=== PATIENT | male | born 1945 | race Caucasian/White ===

== ENCOUNTER → 2020-06-21 14:37 | Outpatient (CLI) | payer MEDICARE, SELFPAY ==
--- NOTE | 2020-06-21 14:40 | CT_ITS ---
STUDY: CT SCAN LOWER EXTREMITY LEFT REASON FOR EXAM: Male, 74 years old. MYKE, VARUS DEFORMITY RADIATION DOSAGE (If Supplied By Facility): CTDIvol = ( 18.73 ) mGy, DLP = ( 1533.46 ) mGycm. Individualized dose optimization techniques were used for this CT.? TECHNIQUE: Multiple axial tomographic images of the left hip joint, left knee joint and left ankle joint were obtained. Coronal and sagittal reconstruction was obtained as well. COMPARISON: None. FINDINGS: The left hip joint is unremarkable. No significant joint space narrowing. There is evidence of disc space narrowing and disc degeneration with spondylosis at the L4-L5 and L5-S1 levels. Minimal anterior listhesis of L5 on S1 most likely secondary to the facet joint osteoarthritis. Moderate degree of joint space narrowing involving the medial compartment of the knee joint. There is evidence of a degenerative spur formation along the medial femoral condyle and medial tibial plateau. There is evidence of subchondral cysts in the medial tibial plateau as well as the medial femoral condyle. Minimal joint space narrowing and degenerative changes involving the femoral patellar joint. Small joint effusion. The ankle joint is unremarkable. CT/Extremity Lower without Contra IMPRESSION: Moderate degree of joint space narrowing and degenerative changes involving the medial compartment of the knee joint and minimal joint space narrowing of the patellofemoral joint. Small joint effusion. 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 Electronically Signed: Sam Rae, at 14:14 EDT , Service support ,
== END ==
PROVIDERS: PCP Family Medicine; Referring Provider Orthopaedic Surgery; Visit Provider Orthopaedic Surgery
DX: M21.162 Varus deformity, not elsewhere classified, left knee (principal)
CPT/HCPCS: 73700

== ENCOUNTER 2020-07-02 11:32 | Observation (INO) | payer MEDICARE, SELFPAY ==
--- NOTE | 2020-06-21 15:45 | EKG12_ITS ---
Test Reason : PRE OP Blood Pressure : / mmHG Vent. Rate : 059 BPM Atrial Rate : 059 BPM P-R Int : 148 ms QRS Dur : 116 ms QT Int : 394 ms P-R-T Axes : 066 -44 035 degrees QTc Int : 390 ms Sinus bradycardia Left axis deviation Abnormal ECG Confirmed by MARCIE MARTINEZ, ASRAHI ([id number]), pictures editor GLADIS UMANA ([id number]) on 06/25/2020 8:02:25 AM Referred By: Graham Tubbs Confirmed By:SARAHI JACK MD
[2020-06-21 15:58] LABS: Absolute Lymphocyte Count 1.09 X10^3/uL (0.83-4.51); Absolute Neutrophil Count 2.3 X10^3/uL (2.0-7.7); Basophil# 0.01 X10^3/uL; Basophil% 0.3 % (0-1); Eosinophil# 0.11 X10^3/uL; Eosinophils% 2.9 % (0-5); Hematocrit 41.5 % (40-54); Hemoglobin 14.5 g/dL (13.0-16.5); Lymphocyte # 1.09 X10^3/ul (4.0); Lymphocyte % 28.6 % (19-41); Mean Corp Hgb Conc 34.9 g/dL (32-36); Mean Corpuscular Hgb 30.5 pg (27.0-32.0); Mean Corpuscular Volume 87.2 fL (80-94); Mean Platelet Vol. 8.6 fl (6.2-12.0); Monocyte# 0.33 X10^3/uL; Monocyte% 8.7 % (0-10); NRBC Flagged by Analyzer 0 % (0-5); Neutrophil # 2.26 X10^3/uL (2.7-7.7); Neutrophil % 59.2 % (47-70); Platelet Count 184 K/mm3 (150-450); RBC Distribution Width CV 12.2 % (11.6-14.6); RBC Distribution Width SD 39.2 fl (35.1-43.9); Red Blood Count 4.76 M/mm3 (4.6-6.2); White Blood Count 3.8 K/mm3 (4.4-11.0)
[2020-06-21 16:32] LABS: Anion Gap 5 (5-15); BUN 16 mg/dL (7-18); BUN/Creat Ratio 16.5 RATIO (10-20); Calcium,Total 9.1 mg/dL (8.5-10.1); Chloride 108 mmol/L (98-107); Creatinine, Serum 0.97 mg/dL (0.70-1.30); EST Glomerular Filtration Rate 81 mL/min (>60); Est Glom Filt Rate - Afr Amer 97 mL/min (>60); Glucose 116 mg/dL (74-106); Potassium 3.7 mmol/L (3.5-5.1); Sodium Level 141 mmol/L (136-145)
[2020-06-22 15:15] LABS: Magnesium 2.4 mg/dL (1.6-2.6)
[2020-07-02] VITALS (11 sets, daily range): BP systolic 119–151; BP diastolic 58–82; PULSE 67–88; RESP 16; TEMP 36.3–36.7; O2SAT 94–100; BMI 26.2
[2020-07-02] MEDS: Acetaminophen 500 MG Tablet 1000 MG PO ×3 (08:32→20:53)
[2020-07-02] MEDS: Gabapentin 600 MG Tablet PO (08:33)
[2020-07-02] MEDS: Lactated Ringers 1,000 ML 125 ML IV (08:43)
[2020-07-02 08:50] LABS: Bedside Glucose 92 mg/dL (70-110)
[2020-07-02] MEDS: Cefazolin 2 GM in 0.9% Normal Saline 100 ML IV (09:58)
--- NOTE | 2020-07-02 10:00 | KNEE_PTH ---
PATIENT: BIJAN RANGEL LOC: MS3 U#:[id number] AGE/SX: 74/M ROOM: MS313 RE07/02/[address]: Dr. Graham Tubbs DO : 1945 BED: 1 DIS: 07/03/2020 SPEC #: [id number] RECD: 07/02/20 13:15 STATUS: MICHAEL REJhonatan #: [id number] CHIARA: 07/02/20 10:[address]: Graham Tubbs DEPT: SURGICAL PATHOLOGY RECD BY: Kyle Argueta ENTERED: 07/02/20 13:30 SP TYPE: TOTAL KNEE OTHR DR: Dr. Toni Rich DO Tissues: Knee, NOS Procedures: Decalcification bone/plaque Surgery Specimen Level IV HEADER OPERATION: DOMONIQUES, robotic assisted total knee arthroplasty PRE-OP DIAGNOSIS: Unilateral primary osteoarthritis left knee TISSUE SUBMITTED: Bone and soft tissue left knee MICROSCOPIC DIAGNOSIS Bone and soft tissue, left knee, total knee arthroplasty: Pieces of bone with degenerative osteoarthritic changes. Fibroadipose tissue, fibroconnective tissue and reactive synovial tissue. AILYN:grisel 07/05/20 MICROSCOPIC DESCRIPTION Slides are reviewed. GROSS DESCRIPTION Received is one container designated bone and soft tissue left knee. The specimen consists of multiple fragments of olson-yellow bone measuring in aggregate 12 x 10 x 3 cm. Also in the specimen container are multiple fragments of yellow-white soft tissue measuring in aggregate 9 x 5 x 2 cm. A number of bony fragments contain articular surfaces consistent with tibial plateau and femoral condyle and displaying prominent osteophyte formation, eburnation, and bone erosion. Copper Tapper sections are submitted in two cassettes as follows: 1 - soft tissue, 2 - bone after decalcification. / AILYN:grisel 07/02/20 TC:5 [facility]: [id number], [id number]
--- NOTE | 2020-07-02 12:21 | RAD_ITS ---
STUDY: X-RAY - LEFT KNEE REASON FOR EXAM: Male, 74 years old. POST OP TECHNIQUE: 2 view(s) of the knee. COMPARISON: None. FINDINGS: Normal visualized distal femur. Normal visualized proximal tibia and fibula. Normal proximal tibiofibular articulation. The patient is status post total knee replacement. There is good alignment. Postoperative soft tissue changes. RAD/Knee 1 or 2 Views IMPRESSION: Status post total knee replacement. There is good alignment. Postoperative soft tissue changes. Electronically Signed: Sam Rae, at 12:49 EDT , Service support ,
[2020-07-02 12:44] LABS: Hematocrit 38.6 % (40-54); Hemoglobin 13.2 g/dL (13.0-16.5); Mean Corp Hgb Conc 34.2 g/dL (32-36); Mean Corpuscular Hgb 30.3 pg (27.0-32.0); Mean Corpuscular Volume 88.5 fL (80-94); Mean Platelet Vol. 8.6 fl (6.2-12.0); Platelet Count 187 K/mm3 (150-450); RBC Distribution Width CV 12.3 % (11.6-14.6); RBC Distribution Width SD 40.3 fl (35.1-43.9); Red Blood Count 4.36 M/mm3 (4.6-6.2); White Blood Count 5.3 K/mm3 (4.4-11.0)
[2020-07-02 13:03] LABS: Anion Gap 7 (5-15); BUN 9 mg/dL (7-18); BUN/Creat Ratio 9.7 RATIO (10-20); Calcium,Total 8.4 mg/dL (8.5-10.1); Chloride 109 mmol/L (98-107); Creatinine, Serum 0.93 mg/dL (0.70-1.30); EST Glomerular Filtration Rate 85 mL/min (>60); Est Glom Filt Rate - Afr Amer 103 mL/min (>60); Estimated Creatinine Clearance 73.04 ml/min; Glucose 164 mg/dL (74-106); Potassium 3.5 mmol/L (3.5-5.1); Sodium Level 142 mmol/L (136-145)
--- NOTE | 2020-07-02 13:43 | PCM.OPRPT ---
Report of Operation Date of Procedure: 07/02/20 Pre-Operative Diagnosis: OA Left knee Post-Operative Diagnosis: same Surgery/Procedure Performed:: Left TKR inspector balance truing: Adam Herrmann Type of Anesthesia:: Spinal Anesthesiologist: Kenroy Reddy Estimated Blood Loss (mL): 20 cc - Admit VTE Documentation VTE Present on Admission: No VTE Mechan Device Prophylaxis: SCD's, Thigh High CHARMAINE Hose VTE Pharm Prophylaxis ordered?: Yes
[2020-07-02] MEDS: Aspirin 81 MG TAB.CHEW PO (16:37)
[2020-07-02] MEDS: Cefazolin 1 GM/50 ML BAG IV (17:39)
[2020-07-02] MEDS: Senna/Docusate Sodium 1 Tablet 2 TABLET PO (20:53)
[2020-07-03] MEDS: Cefazolin 1 GM/50 ML BAG IV (02:28)
[2020-07-03 02:30] VITALS: BP 123/61; PULSE 86; RESP 16; TEMP 37; O2SAT 95
[2020-07-03] MEDS: Acetaminophen 500 MG Tablet 1000 MG PO ×2 (05:21→13:32)
[2020-07-03 05:23] LABS: Hematocrit 34.6 % (40-54); Hemoglobin 11.8 g/dL (13.0-16.5); Mean Corp Hgb Conc 34.1 g/dL (32-36); Mean Corpuscular Hgb 30.1 pg (27.0-32.0); Mean Corpuscular Volume 88.3 fL (80-94); Mean Platelet Vol. 8.3 fl (6.2-12.0); Platelet Count 180 K/mm3 (150-450); RBC Distribution Width CV 12.5 % (11.6-14.6); Red Blood Count 3.92 M/mm3 (4.6-6.2); White Blood Count 13.6 K/mm3 (4.4-11.0)
[2020-07-03 05:38] LABS: Anion Gap 6 (5-15); BUN 14 mg/dL (7-18); BUN/Creat Ratio 14.9 RATIO (10-20); Calcium,Total 7.8 mg/dL (8.5-10.1); Chloride 106 mmol/L (98-107); Creatinine, Serum 0.94 mg/dL (0.70-1.30); EST Glomerular Filtration Rate 83 mL/min (>60); Est Glom Filt Rate - Afr Amer 101 mL/min (>60); Estimated Creatinine Clearance 72.27 ml/min; Glucose 124 mg/dL (74-106); Potassium 4.4 mmol/L (3.5-5.1); Sodium Level 139 mmol/L (136-145)
--- NOTE | 2020-07-03 07:54 | PCM.PN.ORT ---
Subjective: Patient sitting up in bed eating breakfast. Pain well managed. Patient denies chest pain, shortness of breath, calf pain, nausea vomiting. Patient has no other complaints. Patient states he is ready for discharge home today. Objective: Dressing is clean dry intact. Negative signs and symptoms of DVT. Vital signs and labs were reviewed and noted in medical record. Patient is afebrile, neurovascular is otherwise intact. Patient is in no respiratory distress speaking in full sentences. - Physical Exam Vitals/I&O's: Vital Signs Temp Pulse Resp BP Pulse Ox 98.6 F 86 16 123/61 H 95 07/03/20 02:30 07/03/20 02:30 07/03/20 02:30 07/03/20 02:30 07/03/20 02:30 Oxygen Flow Rate (L/min) 6 Oxygen Delivery Method Room Air Weight: 82.8 kg Body Mass Index (BMI) 26.2 Intake and Output for Last 24 Hours 07/01/20 07/02/20 07/03/20 23:59 23:59 23:59 Intake Total 1485 / 1735 600 / 600 Output Total 1450 / 1450 Balance 1485 / 1235 -850 / -850 General: Alert, Oriented x3, Cooperative HEENT: PERRLA Oral: Moist Mucosa Neurological: Cranial nerves II-XII grossly intact Psych/Mental Status: Normal Affect, Alert and oriented to time, place, person, mood and affect Laboratory Results 07/02/20 08:27: POC Glucose 92 07/02/20 12:39: WBC 5.3, RBC 4.36 L, Hgb 13.2, Hct 38.6 L, MCV 88.5, MCH 30.3, MCHC 34.2, RDW Std Deviation 40.3, RDW Coeff of Octavia 12.3, Plt Count 187, MPV 8.6 07/02/20 12:39: Sodium 142, Potassium 3.5, Chloride 109 H, Carbon Dioxide 26.0, Anion Gap 7, BUN 9, Creatinine 0.93, Estim Creat Clear Calc 73.04, Est GFR (MDRD) Af Amer 103, Est GFR (MDRD) Non-Af 85, BUN/Creatinine Ratio 9.7 L, Glucose 164 H, Calcium 8.4 L 07/03/20 05:18: WBC 13.6 H, RBC 3.92 L, Hgb 11.8 L, Hct 34.6 L, MCV 88.3, MCH 30.1, MCHC 34.1, RDW Std Deviation 40.0, RDW Coeff of Octavia 12.5, Plt Count 180, MPV 8.3 07/03/20 05:18: Sodium 139, Potassium 4.4, Chloride 106, Carbon Dioxide 27.0, Anion Gap 6, BUN 14, Creatinine 0.94, Estim Creat Clear Calc 72.27, Est GFR (MDRD) Af Amer 101, Est GFR (MDRD) Non-Af 83, BUN/Creatinine Ratio 14.9, Glucose 124 H, Calcium 7.8 L Current Medications Acetaminophen (Acetaminophen 500 Mg Tablet) 1,000 mg PO Q8 [facility] Last Admin: 07/03/20 05:21 Dose: 1,000 mg Documented by: Aspirin (Aspirin 81 Mg Tab.Chew) 81 mg PO BIDCM [facility] Last Admin: 07/02/20 16:37 Dose: 81 mg Documented by: Insulin Human Lispro (Insulin Lispro 100 Unit/Ml Insuln.Pen) 1 - 6 unit SC Q4H PRN PRN; Protocol PRN Reason: BG>/= 180, SEE PROTOCOL Ondansetron HCl (Ondansetron 4 Mg/2 Ml Vial) 4 mg IV Q8H PRN PRN PRN Reason: NAUSEA Oxycodone HCl (Oxycodone 5 Mg Tablet) 5 - 10 mg PO Q4H PRN PRN PRN Reason: Pain Score 4-10 Promethazine HCl (Promethazine 25 Mg/Ml Syringe) 12.5 mg IM Q6H PRN PRN; Protocol PRN Reason: NAUSEA/VOMITING Senna/Docusate Sodium (Senna/Docusate Sodium 1 Tablet) 2 tablet PO BID [facility] Last Admin: 07/02/20 20:53 Dose: 2 tablet Documented by: Sodium Chloride (0.9% Nacl Peripheral Flush Adult/Peds) 5 - 15 ml IV UD PRN PRN Reason: SALINE FLUSH Sodium Chloride (0.9% Saline Lock 10 Ml Syringe) 10 - 40 ml IV UD PRN PRN Reason: SALINE FLUSH Medical Necessity - Tobacco Use Smoking Status: Never smoker Tobacco Use: Non-smoker Assessment/Plan Status post left total knee arthroplasty Plan 1. Continue all pain medications as prescribed 2. Continue physical therapy weight-bear as tolerated with walker 3. Aspirin 81 mg 1 p.o. every 12 hours x30 days for postop DVT prophylaxis 4. Encourage incentive spirometry 5. Patient will continue outpatient therapy at [facility] 6. Follow-up as scheduled, see pink sheet 7. Discharge home today after p.m. therapy
--- NOTE | 2020-07-03 07:59 | DCINST_ITS ---
Discharge Diet: No Restrictions Discharge Activity: May Not Drive, May Shower, Use Walker May shower in (days): 3 Ice area for (Minutes): 20 - each hour while awake. Weight Bearing Status: Weight bearing as tolerated Elevate: Operative Extremity Additional Activity Instructions:: Wear elastic stockings for 2 weeks after your surgery. Call your doctor if your incision/area has: Continuous Slow Oozing, Sudden Increased Bleeding, Increased Pain/ Swelling, Increased Redness, Foul Smelling Discharge Call your doctor if you observe: Fever of 101 or Higher, Coldness, Increased Pain - in extremity, Numbness or Tingling, Change in Color, Calf discomfort, Uncontrolled pain Change Dressing in (Days):: 0 - and daily as needed. Remove Dressing in (days):: 8 Cleanse incision/area with: Soap & Water Allergies/Adverse Reactions: Allergies No Known Allergies Allergy (Verified 06/22/20 13:24) Medications to take at Discharge Celecoxib [Celebrex] 200 mg PO DAILY 06/22/20 Acetaminophen [Tylenol] 1,000 mg PO Q8 #90 tab 07/03/20 Aspirin [Aspirin, Baby] 81 mg PO BIDCM #60 tab.chew 07/03/20 Oxycodone [Oxyir] 5 - 10 mg PO Q4H PRN PRN 7 Days #84 tablet 07/03/20 Senna/Docusate Sodium [Senokot-S] 2 tablet PO BID tablet 07/03/20 The following prescriptions were given: Aspirin [Aspirin, Baby] 81 mg PO BIDCM #60 tab.chew Transmission Status: Pending to [id number] Oxycodone [Oxyir] 5 - 10 mg PO Q4H PRN PRN 7 Days #84 tablet PRN Reason: Pain Score 4-10 Transmission Status: Received by [id number] Acetaminophen [Tylenol] 1,000 mg PO Q8 #90 tab Transmission Status: Pending to [id number] Primary Care Physician: Toni Rich DO [Primary Care Provider] - Test Results: Test results from this visit will be discussed in further detail at your follow- up appointment, if applicable. Please Follow Up With: Adam Herrmann PA-C When: as scheduled (see pink sheet)
[2020-07-03] MEDS: Senna/Docusate Sodium 1 Tablet 2 TABLET PO (08:02)
[2020-07-03] MEDS: Aspirin 81 MG TAB.CHEW PO (08:02)
[2020-07-03 08:03] VITALS: BP 109/57; PULSE 60; RESP 16; TEMP 36.4; O2SAT 95
[2020-07-03 08:05] VITALS: PULSE 60
[2020-07-03] MEDS: 0.9% NaCl Peripheral Flush Adult/Peds IV (08:09)
--- NOTE | 2020-07-03 10:55 | CASEMGMT ---
RN CM IOS ARCHITECT CM to room to meet with patient for initial transition planning/care coordination assessment. [employer] FREEMAN introduced self and role at [facility]. Pt voices understanding and consents to assessment at this time. Pt sitting up in chair in room in no distress at this time. Pt is A/O at this time and answers all questions appropriately. Care providers, pharmacy, and demographics verified/updated at this time. PCP: Dr Rich Specialists: Dr Tubbs Preferred Pharmacy: [facility] Insurance: [employer] [facility] PPO Prescription Benefit: Yes Living Will/HPOA: Has both LW and Healthcare POA, who is his , Anjana LNOK: , Anjana Living Arrangements: Lives w/his in one-story home w/one step to enter. Was independent prior to surgery. able to help. Transportation: Pt, . Denies concerns. DME: States has the following DME: Walker Pt states no need for further DME at this time. HHC/SNF: No history of either. Denies need for HHC. Pt wishes to go to OP therapy @ [facility]. Has appt on 07/06 @ 1 PM. Pt wishes to return home and states has no concerns with going home at time of discharge. CM to follow for any discharge planning/needs. Pt voices no concerns/needs at this time. Advised pt to ask for CM if any questions/concerns/needs arise. Voices understanding. PLAN: Home w/OP therapy @ [facility] Óscar ISLAS RN, CM
[2020-07-03 11:50] VITALS: BP 112/55; PULSE 61; RESP 16; TEMP 36.6; O2SAT 99
== END 2020-07-03 14:01 | disposition home or self-care (01) ==
LOC: SDC 11:49 → MS3 07-03 07:29
PROVIDERS: Anesthesiology; Admitting Provider Orthopaedic Surgery; PCP Family Medicine; Referring Provider Orthopaedic Surgery; Visit Provider Orthopaedic Surgery
PROC: 0SRD0JZ Replacement of Left Knee Joint with Synthetic Substitute, Open Approach (ICD-10-PCS; CPT 27447; principal; 2020-07-02 09:30)
DX: M17.12 Unilateral primary osteoarthritis, left knee (principal); Z79.899 Other long term (current) drug therapy; R00.1 Bradycardia, unspecified; R94.31 Abnormal electrocardiogram [ECG] [EKG]; Z20.828 Contact with and (suspected) exposure to other viral communicable diseases; M21.162 Varus deformity, not elsewhere classified, left knee
CPT/HCPCS: 01400; 27447; 64447; S2900; 36415; 73560; 80048; 82962; 83735; 85025; 85027; 87081; 87635; 88305; 88311; 93005; 96361; 96365; 96366; 97110; 97161; 97166; 97530; 97535; 99218; 99251; C1776; C9803; J7120; A4216; G0378; G0379; G0463; J2405; U0003

== ENCOUNTER → 2020-07-31 15:28 | Outpatient (CLI) | payer MEDICARE, SELFPAY ==
[2020-07-02 13:30] VITALS: BMI 26.2
--- NOTE | 2020-07-31 15:30 | CT_ITS ---
STUDY: CT RIGHT LOWER EXTREMITY REASON FOR EXAM: Osteoarthritis of right knee, surgical planning. TECHNIQUE: Transaxial CT imaging of the lower extremity was performed. Coronal and sagittal images were reformatted. Individualized dose optimization techniques were used for this CT. COMPARISON: None. FINDINGS: Knee: There are marginal osteophytes, subchondral eburnation and mild joint space narrowing of the medial femorotibial compartment (coronal reconstruction 28). Normal lateral femoral condyle and lateral tibial plateau. There is preservation of the articular joint space of the lateral knee compartment. There are marginal osteophytes and mild joint space narrowing of the patellofemoral articulation (axial image 241). Normal proximal tibiofibular articulation. There is a small joint effusion. The quadriceps tendon is grossly normal. The patellar tendon is grossly normal. Normal Hoffa''s fat pad. There is a small anterior intra-articular body (sagittal reconstruction 30). Hip: There is subchondral cystic change of the lateral acetabulum (sagittal reconstructions 51, 52). The hip joint space is well-preserved. Ankle: There is a small osteochondral lesion of the medial talar dome (coronal reconstruction 27). Normal posterior subtalar and talonavicular articulations. There is arthrosis of the navicular-cuneiform articulations with joint space narrowing and subchondral cystic change of the navicular (sagittal reconstructions 61-63). CT/Extremity Lower without Contra IMPRESSION: Osteoarthritis of the right knee with small intra-articular body. Small right knee joint effusion. Electronically Signed: Monico Moseley MD at 15:20 EST Tel , Service support ,
== END ==
PROVIDERS: PCP Family Medicine; Referring Provider Orthopaedic Surgery; Visit Provider Orthopaedic Surgery
DX: M17.11 Unilateral primary osteoarthritis, right knee (principal); M21.151 Varus deformity, not elsewhere classified, right hip
CPT/HCPCS: 73700

== ENCOUNTER 2020-08-13 07:31 | Observation (INO) | payer MEDICARE, SELFPAY ==
[2020-07-02 13:30] VITALS: BMI 26.2
--- NOTE | 2020-08-03 13:34 | EKG12_ITS ---
Test Reason : PREOP Blood Pressure : / mmHG Vent. Rate : 070 BPM Atrial Rate : 070 BPM P-R Int : 140 ms QRS Dur : 116 ms QT Int : 396 ms P-R-T Axes : 043 -35 064 degrees QTc Int : 427 ms Normal sinus rhythm Left axis deviation Abnormal ECG Confirmed by CHRISTOPHER MARTINEZ, JELANI ([id number]), photography editor GLADIS UMANA ([id number]) on 08/07/2020 9:26:31 AM Referred By: Graham Tubbs Confirmed By:JELANI WHITE MD
[2020-08-03 14:33] LABS: Absolute Neutrophil Count 3.3 X10^3/uL (2.0-7.7); Basophil# 0.02 X10^3/uL; Basophil% 0.4 % (0-1); Eosinophil# 0.27 X10^3/uL; Eosinophils% 5.1 % (0-5); Hematocrit 38.4 % (40-54); Hemoglobin 12.9 g/dL (13.0-16.5); Mean Corp Hgb Conc 33.6 g/dL (32-36); Mean Corpuscular Hgb 29.7 pg (27.0-32.0); Mean Corpuscular Volume 88.5 fL (80-94); Mean Platelet Vol. 8.7 fl (6.2-12.0); Monocyte# 0.53 X10^3/uL; Monocyte% 10.1 % (0-10); NRBC Flagged by Analyzer 0 % (0-5); Neutrophil # 3.31 X10^3/uL (2.7-7.7); Platelet Count 216 K/mm3 (150-450); RBC Distribution Width CV 12.5 % (11.6-14.6); RBC Distribution Width SD 40.7 fl (35.1-43.9); Red Blood Count 4.34 M/mm3 (4.6-6.2); White Blood Count 5.3 K/mm3 (4.4-11.0)
[2020-08-03 14:41] LABS: Anion Gap 4 (5-15); BUN 16 mg/dL (7-18); BUN/Creat Ratio 13.9 RATIO (10-20); Calcium,Total 8.9 mg/dL (8.5-10.1); Chloride 108 mmol/L (98-107); Creatinine, Serum 1.15 mg/dL (0.70-1.30); EST Glomerular Filtration Rate 66 mL/min (>60); Est Glom Filt Rate - Afr Amer 80 mL/min (>60); Glucose 111 mg/dL (74-106); Potassium 3.6 mmol/L (3.5-5.1); Sodium Level 141 mmol/L (136-145)
[2020-08-03 14:44] LABS: Magnesium 2.4 mg/dL (1.6-2.6)
[2020-08-13] VITALS (16 sets, daily range): BP systolic 103–145; BP diastolic 50–82; PULSE 57–92; RESP 16–18; TEMP 36–36.8; O2SAT 97–100; BMI 26.2
--- NOTE | 2020-08-13 | KNEE_PTH ---
PATIENT: BIJAN RANGEL LOC: MS3 U#:[id number] AGE/SX: 74/M ROOM: [facility] [place] RE08/13/[address]: Dr. Graham Tubbs DO : 1945 BED: 1 DIS: 08/14/2020 SPEC #: [id number] RECD: 08/13/20 10:51 STATUS: MICHAEL REQ #: [id number] CHIARA: 08/13/20 00:[address]: Graham Tubbs DEPT: SURGICAL PATHOLOGY RECD BY: Sylvester Mendez ENTERED: 08/13/20 12:27 SP TYPE: TOTAL KNEE OTHR DR: Dr. Toni Rich DO Tissues: Knee, NOS Procedures: Decalcification bone/plaque Surgery Specimen Level IV HEADER OPERATION: ERAS, total knee replacement robotic arm assist PRE-OP DIAGNOSIS: Primary osteoarthritis TISSUE SUBMITTED: Right knee bone MICROSCOPIC DIAGNOSIS Right knee bone, total knee replacement/resection: Pieces of bone with degenerative osteoarthritic changes. :grisel 08/16/20 MICROSCOPIC DESCRIPTION Slides are reviewed. GROSS DESCRIPTION Received is one container designated knee bone. The specimen consists of multiple fragments of olson-yellow bone measuring in aggregate 15 x 15 x 2 cm. A number of bony fragments contain articular surfaces consistent with tibial plateau and femoral condyle and displaying prominent osteophyte formation, eburnation, and bone erosion. No soft tissue is identified. Artisan Plasterer sections are submitted in one cassette after decalcification. / AM:grisel 08/13/20 TC:5 CPT: 55100, 25687
[2020-08-13] MEDS: Lactated Ringers 1,000 ML 125 ML IV (06:10)
[2020-08-13] MEDS: Acetaminophen 500 MG Tablet 1000 MG PO ×3 (06:11→21:08)
[2020-08-13] MEDS: Gabapentin 600 MG Tablet PO (06:11)
[2020-08-13 06:41] LABS: Bedside Glucose 86 mg/dL (70-110)
--- NOTE | 2020-08-13 07:32 | RAD_ITS ---
STUDY: X-RAY - RIGHT KNEE REASON FOR EXAM: Male, 74 years old. POST OP TECHNIQUE: 2 view(s) of the knee. COMPARISON: None. FINDINGS: Normal visualized distal femur. Normal visualized proximal tibia and fibula. Normal proximal tibiofibular articulation. The patient is status post right total knee replacement. There is good alignment. Postoperative soft tissue changes. RAD/Knee 1 or 2 Views IMPRESSION: Status post right total knee replacement. There is good alignment. Postoperative soft tissue changes. Electronically Signed: Sam Rae, at 10:31 EST , Service support ,
[2020-08-13] MEDS: Cefazolin 2 GM in 0.9% Normal Saline 100 ML IV (07:50)
--- NOTE | 2020-08-13 10:08 | EKG12_ITS ---
Test Reason : IRREGULAR RYTH Blood Pressure : / mmHG Vent. Rate : 054 BPM Atrial Rate : 054 BPM P-R Int : 168 ms QRS Dur : 114 ms QT Int : 454 ms P-R-T Axes : 062 -37 -12 degrees QTc Int : 430 ms Sinus bradycardia Left axis deviation Incomplete right bundle branch block Abnormal ECG Confirmed by MARCIE MARTINEZ, SARAHI ([id number]), continuity editor GLADIS UMANA ([id number]) on 08/15/2020 1:36:56 PM Referred By: Graham Tubbs Confirmed By:SARAHI JACK MD
[2020-08-13 10:18] LABS: Hematocrit 35.9 % (40-54); Hemoglobin 12.2 g/dL (13.0-16.5); Mean Corpuscular Hgb 29.8 pg (27.0-32.0); Mean Corpuscular Volume 87.6 fL (80-94); Mean Platelet Vol. 8.3 fl (6.2-12.0); Platelet Count 243 K/mm3 (150-450); RBC Distribution Width CV 12.4 % (11.6-14.6); RBC Distribution Width SD 39.8 fl (35.1-43.9); White Blood Count 5.8 K/mm3 (4.4-11.0)
[2020-08-13 10:29] LABS: Anion Gap 6 (5-15); BUN 15 mg/dL (7-18); BUN/Creat Ratio 17.3 RATIO (10-20); Calcium,Total 8.3 mg/dL (8.5-10.1); Chloride 109 mmol/L (98-107); Creatinine, Serum 0.87 mg/dL (0.70-1.30); EST Glomerular Filtration Rate 92 mL/min (>60); Est Glom Filt Rate - Afr Amer 111 mL/min (>60); Estimated Creatinine Clearance 78.08 ml/min; Glucose 160 mg/dL (74-106); Potassium 3.4 mmol/L (3.5-5.1); Sodium Level 142 mmol/L (136-145)
--- NOTE | 2020-08-13 10:39 | PCM.CONS.GEN ---
Problem List (1) LBBB (left bundle branch block) Status: Acute (2) Hypokalemia Status: Acute Reason for Consult Date of Consultation: 08/13/20 Reason for Consultation: abnormal EKG History of Present Illness: The patient is a 74 year old M a right total knee replacement by Dr. Marte. Patient had a postoperative EKG that showed a left bundle branch block that was changed from EKG from 1127. Postoperatively, patient denies any chest pain or shortness of breath. Otherwise feels well. He denies any personal history of cardiac disease. [] Past Medical History Allergies No Known Allergies Allergy (Verified 07/30/20 13:58) Home Medications: Ambulatory Orders Medication Instructions Recorded Celecoxib [Celebrex] 200 mg PO DAILY 06/22/20 Acetaminophen [Tylenol] 1,000 mg PO Q8 #90 tab 07/03/20 Surgical History: total knee arthroplasty Smoking Status: Never smoker Tobacco Use: Non-smoker - *Family History Sibling History Items: Heart Disease Review of Systems Constitutional: Denies: Anorexia, Fever Eyes: Denies: Blurred vision, Double vision HEENT: Denies: Head Aches, Sinus Congestion, Sinus Drainage Cardiovascular: Denies: Chest Pain, Palpitations Respiratory: Denies: Cough, Shortness of breath at rest, Sputum production Gastrointestinal: Denies: Abdominal Pain, Nausea, Vomiting Comment: All review of systems were negative except as mentioned above in the history of present illness and the other review of systems. Patient Problems: Active and Suspected Problems LBBB (left bundle branch block) (Acute) Hypokalemia (Acute) - Physical Exam Vitals/I&O's: Vital Signs Temp Pulse Resp BP Pulse Ox 36.2 C L 82 16 122/66 H 100 08/13/20 09:45 08/13/20 10:30 08/13/20 10:30 08/13/20 10:30 08/13/20 10:30 Oxygen Flow Rate (L/min) 6 Oxygen Delivery Method Simple Mask Weight: 83 kg Body Mass Index (BMI) 26.2 Intake and Output for Last 24 Hours 08/11/20 08/12/20 08/13/20 23:59 23:59 23:59 Intake Total 435 / 435 Balance 435 / 435 General: Alert, Cooperative, No apparent distress HEENT: Atraumatic, Normocephalic Oral: Moist Mucosa, No Gingival or Mucosal Lesions/ Ulcerations Neck: No Nodes, Thyroid Normal Size and Texture Lungs: Clear to auscultation, Normal air movement, No rhonchi, No wheeze, No rales Cardiovascular: Regular rate, Regular Rhythm, Normal S1, Normal S2, No murmurs Abdomen: Bowel Sounds Present, Soft, Non Tender, Non-Distended, No Hepato-splenomegaly Extremities: No edema, No Calf Tenderness Skin: No rashes, No breakdown Psych/Mental Status: Normal Affect, Appropriate Microbiology Past 72 Hours 08/10/20 13:57 Interface Orders SARS-CoV-2 Antigen (Rapid) - Final Laboratory Results 08/13/20 05:52: POC Glucose 86 08/13/20 10:08: WBC 5.8, RBC 4.10 L, Hgb 12.2 L, Hct 35.9 L, MCV 87.6, MCH 29.8, MCHC 34.0, RDW Std Deviation 39.8, RDW Coeff of Octavia 12.4, Plt Count 243, MPV 8.3 08/13/20 10:08: Sodium 142, Potassium 3.4 L, Chloride 109 H, Carbon Dioxide 27.0, Anion Gap 6, BUN 15, Creatinine 0.87, Estim Creat Clear Calc 78.08, Est GFR (MDRD) Af Amer 111, Est GFR (MDRD) Non-Af 92, BUN/Creatinine Ratio 17.3, Glucose 160 H, Calcium 8.3 L 08/13/20 10:08: Troponin I < 0.015 08/13/20 10:08: Magnesium Pending EKG reviewed and showed normal sinus rhythm with a left bundle branch block. This is changed from 08/03/2020. Current Medications Acetaminophen (Acetaminophen 500 Mg Tablet) 1,000 mg PO Q8 MICHAEL Aspirin (Aspirin 81 Mg Tab.Chew) 81 mg PO BIDCM [facility] Lactated Ringer's () 1,000 mls @ 125 mls/hr IV .Q8H [facility] Stop: 08/13/20 14:59 Last Admin: 08/13/20 06:10 Dose: 125 mls/hr Documented by: Cefazolin Sodium () 1 gm in 50 mls @ 150 mls/hr IV Q8H [facility] Stop: 08/14/20 00:19 Insulin Human Lispro (Insulin Lispro 100 Unit/Ml Insuln.Pen) 1 - 6 unit SC Q4H PRN PRN; Protocol PRN Reason: BG>/= 180, SEE PROTOCOL Ondansetron HCl (Ondansetron 4 Mg/2 Ml Vial) 4 mg IV Q8H PRN PRN PRN Reason: NAUSEA Oxycodone HCl (Oxycodone 5 Mg Tablet) 5 - 10 mg PO Q4H PRN PRN PRN Reason: Pain Score 4-10 Potassium Chloride (Potassium Chloride 20 Meq Tablet) 40 meq PO X1 ONE Stop: 08/13/20 10:38 Promethazine HCl (Promethazine 25 Mg/Ml Syringe) 12.5 mg IM Q6H PRN PRN; Protocol PRN Reason: NAUSEA/VOMITING Senna/Docusate Sodium (Senna/Docusate Sodium 1 Tablet) 2 tablet PO BID MICHAEL Assessment/Plan All Active Problems LBBB (left bundle branch block) (Acute) Hypokalemia (Acute) 1. Left bundle branch block: New from 08/03 Cycle troponins. Based on the results of that if evidence of cardiac ischemia, may need to consider cardiology consultation. Will hold off for now as patient is currently asymptomatic. Will recheck his EKG this afternoon after electrolytes replacement to see if any changes which could be related with electrolyte abnormalities were just with anesthesia if those have resolved. 2. Hypokalemia: Replace Follow-up magnesium level 3. Status post right knee replacement Management per orthopedics 4. VTE prophylaxis: Per orthopedics. Inpatient E&M: 61170 Init Hosp L2
[2020-08-13 10:40] LABS: Magnesium 2.8 mg/dL (1.6-2.6)
--- NOTE | 2020-08-13 13:07 | OP.PCM_ITS ---
Report of Operation Date of Procedure: 08/13/20 Pre-Operative Diagnosis: OA right knee Post-Operative Diagnosis: same Surgery/Procedure Performed:: Right TKR [place] history professor: Adam Herrmann Type of Anesthesia:: Spinal Anesthesiologist: Kenroy Reddy - Admmaryellen VTE Documentation VTE Present on Admission: No VTE Mechan Device Prophylaxis: SCD's, Thigh High CHARMAINE Hose VTE Pharm Prophylaxis ordered?: Yes
[2020-08-13] MEDS: Senna/Docusate Sodium 1 Tablet 2 TABLET PO ×2 (13:37→21:08)
[2020-08-13] MEDS: Cefazolin 1 GM/50 ML BAG IV ×2 (16:08→23:40)
[2020-08-13] MEDS: Aspirin 81 MG TAB.CHEW PO (16:09)
[2020-08-14 04:00] VITALS: PULSE 62
[2020-08-14] MEDS: Acetaminophen 500 MG Tablet 1000 MG PO ×2 (05:09→13:11)
[2020-08-14 05:10] VITALS: BP 114/51; PULSE 73; RESP 16; TEMP 37; O2SAT 96
[2020-08-14 06:53] LABS: Hematocrit 33.2 % (40-54); Hemoglobin 10.9 g/dL (13.0-16.5); Mean Corp Hgb Conc 32.8 g/dL (32-36); Mean Corpuscular Hgb 29.1 pg (27.0-32.0); Mean Corpuscular Volume 88.5 fL (80-94); Mean Platelet Vol. 8.7 fl (6.2-12.0); Platelet Count 218 K/mm3 (150-450); RBC Distribution Width CV 12.5 % (11.6-14.6); RBC Distribution Width SD 40.6 fl (35.1-43.9); Red Blood Count 3.75 M/mm3 (4.6-6.2); White Blood Count 11.7 K/mm3 (4.4-11.0)
[2020-08-14 07:30] LABS: Anion Gap 5 (5-15); BUN 19 mg/dL (7-18); BUN/Creat Ratio 24.2 RATIO (10-20); Calcium,Total 8.2 mg/dL (8.5-10.1); Chloride 109 mmol/L (98-107); Creatinine, Serum 0.78 mg/dL (0.70-1.30); EST Glomerular Filtration Rate 103 mL/min (>60); Est Glom Filt Rate - Afr Amer 125 mL/min (>60); Estimated Creatinine Clearance 67.93 ml/min; Glucose 142 mg/dL (74-106); Potassium 3.8 mmol/L (3.5-5.1); Sodium Level 138 mmol/L (136-145)
--- NOTE | 2020-08-14 07:36 | PCM.PN.ORT ---
Patient Problems: Active and Suspected Problems LBBB (left bundle branch block) (Acute) Hypokalemia (Acute) Subjective: Patient sitting up in bed eating breakfast. Patient states pain is very well managed. Patient denies chest pain, shortness of breath, calf pain, nausea vomiting. Patient states he was told that he had an irregular heartbeat, however states he is never had any symptoms with this. Patient states he feels very good ready for discharge home. Objective: Dressings clean dry intact. Vital signs all within normal limits. Labs all reviewed noted medical record. Patient has a regular rate and rhythm by radial pulse. Patient is no respiratory distress, speaking in full sentences. Patient has no signs and symptoms of DVT. Patient is afebrile. - Physical Exam Vitals/I&O's: Vital Signs Temp Pulse Resp BP Pulse Ox 98.6 F 73 16 114/51 L 96 08/14/20 05:10 08/14/20 05:10 08/14/20 05:10 08/14/20 05:10 08/14/20 05:10 Oxygen Flow Rate (L/min) 6 Oxygen Delivery Method Room Air Weight: 83 kg Body Mass Index (BMI) 26.2 Intake and Output for Last 24 Hours 08/12/20 08/13/20 08/14/20 23:59 23:59 23:59 Intake Total 1964 50 / 50 Output Total 1275 / 1275 450 / 450 Balance 690 / 740 -400 / -400 General: Alert, Oriented x3, Cooperative HEENT: PERRLA Oral: Moist Mucosa Cardiovascular: Regular rate Neurological: Cranial nerves II-XII grossly intact Psych/Mental Status: Normal Affect, Alert and oriented to time, place, person, mood and affect Laboratory Results 08/13/20 10:08: WBC 5.8, RBC 4.10 L, Hgb 12.2 L, Hct 35.9 L, MCV 87.6, MCH 29.8, MCHC 34.0, RDW Std Deviation 39.8, RDW Coeff of Octavia 12.4, Plt Count 243, MPV 8.3 08/13/20 10:08: Sodium 142, Potassium 3.4 L, Chloride 109 H, Carbon Dioxide 27.0, Anion Gap 6, BUN 15, Creatinine 0.87, Estim Creat Clear Calc 78.08, Est GFR (MDRD) Af Amer 111, Est GFR (MDRD) Non-Af 92, BUN/Creatinine Ratio 17.3, Glucose 160 H, Calcium 8.3 L 08/13/20 10:08: Troponin I < 0.015 08/13/20 10:08: Magnesium 2.8 H 08/13/20 13:20: Troponin I < 0.015 08/13/20 16:32: Troponin I < 0.015 08/14/20 06:20: WBC 11.7 H, RBC 3.75 L, Hgb 10.9 L, Hct 33.2 L, MCV 88.5, MCH 29.1, MCHC 32.8, RDW Std Deviation 40.6, RDW Coeff of Octavia 12.5, Plt Count 218, MPV 8.7 08/14/20 06:20: Sodium 138, Potassium 3.8, Chloride 109 H, Carbon Dioxide 24.0, Anion Gap 5, BUN 19 H, Creatinine 0.78, Estim Creat Clear Calc 67.93, Est GFR (MDRD) Af Amer 125, Est GFR (MDRD) Non-Af 103, BUN/Creatinine Ratio 24.2 H, Glucose 142 H, Calcium 8.2 L Current Medications Acetaminophen (Acetaminophen 500 Mg Tablet) 1,000 mg PO Q8 [facility] Last Admin: 08/14/20 05:09 Dose: 1,000 mg Documented by: Aspirin (Aspirin 81 Mg Tab.Chew) 81 mg PO BIDCM [facility] Last Admin: 08/13/20 16:09 Dose: 81 mg Documented by: Sodium Chloride () 250 mls @ 15 mls/hr IV .[id number] PRN PRN Reason: Saline Flush Insulin Human Lispro (Insulin Lispro 100 Unit/Ml Insuln.Pen) 1 - 6 unit SC Q4H PRN PRN; Protocol PRN Reason: BG>/= 180, SEE PROTOCOL Ondansetron HCl (Ondansetron 4 Mg/2 Ml Vial) 4 mg IV Q8H PRN PRN PRN Reason: NAUSEA Oxycodone HCl (Oxycodone 5 Mg Tablet) 5 - 10 mg PO Q4H PRN PRN PRN Reason: Pain Score 4-10 Promethazine HCl (Promethazine 25 Mg/Ml Syringe) 12.5 mg IM Q6H PRN PRN; Protocol PRN Reason: NAUSEA/VOMITING Senna/Docusate Sodium (Senna/Docusate Sodium 1 Tablet) 2 tablet PO BID MICHAEL Last Admin: 08/13/20 21:08 Dose: 2 tablet Documented by: Sodium Chloride (0.9% Saline Lock 10 Ml Syringe) 10 - 40 ml IV UD PRN PRN Reason: SALINE FLUSH Medical Necessity - Tobacco Use Smoking Status: Never smoker Tobacco Use: Non-smoker Assessment/Plan All Active Problems LBBB (left bundle branch block) (Acute) Hypokalemia (Acute) Status post right total knee arthroplasty Left bundle branch block/stable Plan 1. Continue all pain medications as prescribed 2. Continue physical therapy, weight-bear as tolerated with walker 3. Continue all pain medications as prescribed. 4. Aspirin 81 mg 1 p.o. every 12 hours x30 days for postop DVT prophylaxis 5. Encourage incentive spirometry 6. Discharge home when clear with medicine 7. Follow-up as scheduled, see pink sheet 8. Continue outpatient physical therapy at [facility] [place]
--- NOTE | 2020-08-14 07:44 | DCINST_ITS ---
Discharge Diet: No Restrictions Discharge Activity: May Not Drive, May Shower, Use Walker May shower in (days): 3 Ice area for (Minutes): 20 - each hour while awake. Weight Bearing Status: Weight bearing as tolerated Elevate: Operative Extremity Additional Activity Instructions:: Wear elastic stockings for 2 weeks after your surgery. Call your doctor if your incision/area has: Continuous Slow Oozing, Sudden Increased Bleeding, Increased Pain/ Swelling, Increased Redness, Foul Smelling Discharge Call your doctor if you observe: Fever of 101 or Higher, Coldness, Increased Pain - in extremity, Numbness or Tingling, Change in Color, Calf discomfort, Uncontrolled pain Change Dressing in (Days):: 0 - and daily as needed. Remove Dressing in (days):: 8 Cleanse incision/area with: Soap & Water Allergies/Adverse Reactions: Allergies No Known Allergies Allergy (Verified 07/30/20 13:58) Medications to take at Discharge Acetaminophen [Tylenol] 1,000 mg PO Q8 #90 tab 07/03/20 Acetaminophen [Tylenol] 1,000 mg PO Q8 #90 tab 08/14/20 Aspirin [Aspirin, Baby] 81 mg PO BIDCM #60 tab.chew 08/14/20 Oxycodone [Oxyir] 5 - 10 mg PO Q4H PRN PRN 7 Days #84 tablet 08/14/20 The following prescriptions were given: Aspirin [Aspirin, Baby] 81 mg PO BIDCM #60 tab.chew Transmission Status: Pending to [id number] Oxycodone [Oxyir] 5 - 10 mg PO Q4H PRN PRN 7 Days #84 tablet PRN Reason: Pain Score 4-10 Transmission Status: Received by [id number] Acetaminophen [Tylenol] 1,000 mg PO Q8 #90 tab Transmission Status: Pending to [id number] Primary Care Physician: Toni Rich DO [Primary Care Provider] - Test Results: Test results from this visit will be discussed in further detail at your follow- up appointment, if applicable. Please Follow Up With: Adam Herrmann PA-C When: as scheduled (see pink sheet)
[2020-08-14 08:53] VITALS: BP 118/61; PULSE 68; RESP 18; TEMP 36.5; O2SAT 97
[2020-08-14] MEDS: Aspirin 81 MG TAB.CHEW PO (08:55)
[2020-08-14] MEDS: Senna/Docusate Sodium 1 Tablet 2 TABLET PO (08:55)
[2020-08-14] MEDS: oxyCODONE 5 MG Tablet PO ×2 (08:56→13:11)
[2020-08-14 09:00] VITALS: PULSE 72
[2020-08-14 10:00] VITALS: PULSE 62
--- NOTE | 2020-08-14 10:30 | CASEMGMT ---
[employer] Face to Face with patient for initial transition planning/care coordination assessment. [employer] introduced self and role at [facility]. Patient sitting in chair, alert and oriented. Patient willing to participate in assessment and is able to answer all questions appropriately. Care providers, pharmacy, and demographics verified. Patient wishes to discharge home and is setup with [facility] for outpatient therapy. Patient states he has no further needs or concerns at this time. CM to follow for discharge planning needs that may arise. PCP: Layla Specialists: Suly Preferred Pharmacy: [facility] Insurance: [employer] [facility] Prescription Benefit: yes Living Will/HPOA: yes, Anjana Deluca LNOK: Living Arrangements: Patient lives with in a single story home with bed and bath on first floor. Patient states he was independent at home prior to surgery. Transportation: DME/HHC: Patient states he has cane and walker at home. Patient is setup with [facility] for outpatient starting Thursday. [employer] reviewed EATON form with patient, patient voiced understanding and signed EATON form. Original signed form filed in chart, patient provided with copy of signed EATON form. Patient had no further questions or concerns at this time. Disposition Plan: Patient to discharge home with outpatient therapy, family support, and follow-up plans in place. Anna ISLAS, RN, CM
--- NOTE | 2020-08-14 11:46 | PHA.DC.COU ---
Pharmacy Services has performed discharge medication counseling for this patient. 1. ASPIRIN 81MG PO BIDCM 2. OXYCODONE 5-10MG PO Q4H PRN PAIN 4-10 The patient was counseled on the following discharge medications and changes in medications for homegoing review. The Reason for Use, instructions for use, and potential side effects were reviewed for all new medications. The patient's questions regarding all of their medications were answered. The patient was able to verbally demonstrate an understanding of their discharge medications.
--- NOTE | 2020-08-14 13:12 | PCM.PN.HOSP ---
Patient Problems: Active and Suspected Problems LBBB (left bundle branch block) (Acute) Hypokalemia (Acute) Subjective: Feels good. No current complaints. Vitals/I&O's: Vital Signs Temp Pulse Resp BP Pulse Ox 36.5 C L 62 18 118/61 97 08/14/20 08:53 08/14/20 10:00 08/14/20 08:53 08/14/20 08:53 08/14/20 08:53 Oxygen Flow Rate (L/min) 6 Oxygen Delivery Method Room Air Weight: 83 kg Body Mass Index (BMI) 26.2 Intake and Output for Last 24 Hours 08/12/20 08/13/20 08/14/20 23:59 23:59 23:59 Intake Total 1964 440 / 440 Output Total 1275 / 1275 1250 / 1250 Balance 690 / 740 -810 / -810 General: Alert, No apparent distress HEENT: Atraumatic, Normocephalic Oral: Moist Mucosa, No Gingival or Mucosal Lesions/ Ulcerations Neck: No Nodes, Thyroid Normal Size and Texture Lungs: Clear to auscultation, Normal air movement, No rhonchi, No wheeze Cardiovascular: Regular rate, Regular Rhythm, Normal S1, Normal S2, No murmurs Abdomen: Bowel Sounds Present, Soft, Non Tender, Non-Distended, No Hepato-splenomegaly Extremities: No edema, No Calf Tenderness Laboratory Results 08/13/20 13:20: Troponin I < 0.015 08/13/20 16:32: Troponin I < 0.015 08/14/20 06:20: WBC 11.7 H, RBC 3.75 L, Hgb 10.9 L, Hct 33.2 L, MCV 88.5, MCH 29.1, MCHC 32.8, RDW Std Deviation 40.6, RDW Coeff of Octavia 12.5, Plt Count 218, MPV 8.7 08/14/20 06:20: Sodium 138, Potassium 3.8, Chloride 109 H, Carbon Dioxide 24.0, Anion Gap 5, BUN 19 H, Creatinine 0.78, Estim Creat Clear Calc 67.93, Est GFR (MDRD) Af Amer 125, Est GFR (MDRD) Non-Af 103, BUN/Creatinine Ratio 24.2 H, Glucose 142 H, Calcium 8.2 L EKG reviewed and shows resolution of the left bundle branch block and shows incomplete right bundle branch block. Which was present before. Current Medications Acetaminophen (Acetaminophen 500 Mg Tablet) 1,000 mg PO Q8 [facility] Last Admin: 08/14/20 13:11 Dose: 1,000 mg Documented by: Aspirin ([facility] 81 Mg [facility].Chew) [facility] Last Admin: 08/14/20 08:55 Dose: 81 mg Documented by: Sodium Chloride () 250 mls @ 15 mls/hr IV .[id number] PRN PRN Reason: Saline Flush Insulin Human Lispro (Insulin Lispro 100 Unit/Ml Insuln.Pen) 1 - 6 unit SC Q4H PRN PRN; Protocol PRN Reason: BG>/= 180, SEE PROTOCOL Ondansetron HCl (Ondansetron 4 Mg/2 Ml Vial) 4 mg IV Q8H PRN PRN PRN Reason: NAUSEA Oxycodone HCl (Oxycodone 5 Mg Tablet) 5 - 10 mg PO Q4H PRN PRN PRN Reason: Pain Score 4-10 Last Admin: 08/14/20 13:11 Dose: 10 mg Documented by: Promethazine HCl (Promethazine 25 Mg/Ml Syringe) 12.5 mg IM Q6H PRN PRN; Protocol PRN Reason: NAUSEA/VOMITING Senna/Docusate Sodium (Senna/Docusate Sodium 1 Tablet) 2 tablet PO BID [facility] Last Admin: 08/14/20 08:55 Dose: 2 tablet Documented by: Sodium Chloride (0.9% Saline Lock 10 Ml Syringe) 10 - 40 ml IV UD PRN PRN Reason: SALINE FLUSH STROKE Vital Signs/Narrative: Vital Signs Pulse 08/14/20 10:00 62 Medical Necessity - Tobacco Use Smoking Status: Never smoker Tobacco Use: Non-smoker Assessment/Plan All Active Problems LBBB (left bundle branch block) (Acute) Hypokalemia (Acute) 1. Left bundle branch block: New from 08/03 but resolved on follow-up EKG. Troponins were negative. Feel this may be a combination of electrolyte derangements as patient was hypokalemic but possibly also related with some of the anesthetics. Patient was asymptomatic and on feel any additional work-up is necessary at this time. 2. Hypokalemia: Improved with replacement. 3. Status post right knee replacement Management per orthopedics 4. VTE prophylaxis: Per orthopedics. Medically stable for discharge. Inpatient E&M: 65119 Subs Hosp L2
[2020-08-14 13:15] VITALS: BP 131/58; PULSE 73; RESP 18; TEMP 36.9; O2SAT 98
== END 2020-08-14 14:05 | disposition home or self-care (01) ==
LOC: MS3 09:11 → SDC 10:08 → MS3 10:08
PROVIDERS: Anesthesiology; Admitting Provider Orthopaedic Surgery; PCP Family Medicine; Referring Provider Orthopaedic Surgery; Visit Provider Orthopaedic Surgery
PROC: 0SRC0JZ Replacement of Right Knee Joint with Synthetic Substitute, Open Approach (ICD-10-PCS; CPT 27447; principal; 2020-08-13 07:00)
DX: M17.11 Unilateral primary osteoarthritis, right knee (principal); Z20.828 Contact with and (suspected) exposure to other viral communicable diseases; E87.6 Hypokalemia; I44.7 Left bundle-branch block, unspecified
CPT/HCPCS: 01400; 27447; 64447; S2900; 36415; 73560; 80048; 82962; 83735; 84484; 85025; 85027; 87081; 87426; 88305; 88311; 93005; 96361; 96365; 96366; 97110; 97116; 97162; 97166; 97530; 97535; 99218; C1776; C9803; J7120; G0378; G0379; J2405

== ENCOUNTER → 2022-11-28 | Outpatient (CLI) | payer MEDICARE, SELFPAY ==
[2022-11-28 17:55] LABS: Absolute Lymphocyte Count 0.99 X10^3/uL (0.83-4.51); Absolute Neutrophil Count 2.5 X10^3/uL (2.0-7.7); Basophil# 0.01 X10^3/uL; Basophil% 0.2 % (0-1); Eosinophil# 0.15 X10^3/uL; Eosinophils% 3.7 % (0-5); Hematocrit 41.3 % (40-54); Hemoglobin 14.3 g/dL (13.0-16.5); Lymphocyte # 0.99 X10^3/ul (0.83-4.51); Lymphocyte % 24.4 % (19-41); Mean Corp Hgb Conc 34.6 g/dL (32-36); Mean Corpuscular Hgb 29.7 pg (27.0-32.0); Mean Corpuscular Volume 85.7 fL (80-94); Mean Platelet Vol. 8.9 fl (6.2-12.0); Monocyte# 0.41 X10^3/uL; Monocyte% 10.1 % (0-10); NRBC Flagged by Analyzer 0 % (0-5); Neutrophil # 2.48 X10^3/uL (2.7-7.7); Neutrophil % 61.4 % (47-70); Platelet Count 186 K/mm3 (150-450); RBC Distribution Width CV 12.8 % (11.6-14.6); Red Blood Count 4.82 M/mm3 (4.6-6.2); White Blood Count 4.1 K/mm3 (4.4-11.0)
[2022-11-28 18:29] LABS: ALB/GLOB Ratio 1.1 RATIO (0.9-2.4); AST(SGOT) 19 U/L (15-37); Alanine Aminotransfer ALT/SGPT 26 U/L (16-61); Albumin, Serum 3.5 g/dL (3.2-5.0); Alkaline Phosphatase 89 U/L (45-117); Anion Gap 4 (5-15); BUN 15 mg/dL (7-18); BUN/Creat Ratio 17.9 RATIO (10-20); Chloride 107 mmol/L (98-107); Creatinine, Serum 0.84 mg/dL (0.70-1.30); EST Glomerular Filtration Rate 95 mL/min (>60); Est Glom Filt Rate - Afr Amer 115 mL/min (>60); Globulin 3.3 g/dL (2.2-4.2); Glucose 113 mg/dL (74-106); PSA,Total - Annual Screen 4.14 ng/mL (0.00-4.00); Potassium 3.7 mmol/L (3.5-5.1); Protein, Total 6.8 g/dL (6.4-8.2); Sodium Level 138 mmol/L (136-145); Thyroid Stim Hormone (TSH) 1.23 uIU/mL (0.358-3.74)
== END | disposition home or self-care (01) ==
LOC: BFHLAB 13:55
PROVIDERS: PCP Family Medicine; Visit Provider Family Medicine
DX: R00.1 Bradycardia, unspecified (principal); D64.9 Anemia, unspecified; Z12.5 Encounter for screening for malignant neoplasm of prostate
CPT/HCPCS: 36415; 80053; 84153; 84443; 85025; G0103

== ENCOUNTER → 2024-05-03 | Outpatient (CLI) | payer MEDICARE, SELFPAY ==
[2024-05-03 17:59] LABS: Absolute Neutrophil Count 3.1 X10^3/uL (2.0-7.7); Basophil# 0.02 X10^3/uL; Basophil% 0.4 % (0-1); Eosinophil# 0.14 X10^3/uL; Eosinophils% 2.8 % (0-5); Hemoglobin 14.3 g/dL (13.0-16.5); Lymphocyte % 25.7 % (19-41); Mean Corpuscular Hgb 29.2 pg (27.0-32.0); Mean Corpuscular Volume 85.9 fL (80-94); Mean Platelet Vol. 8.9 fl (6.2-12.0); Monocyte# 0.51 X10^3/uL; Monocyte% 10.1 % (0-10); NRBC Flagged by Analyzer 0 % (0-5); Neutrophil # 3.08 X10^3/uL (2.7-7.7); Neutrophil % 60.8 % (47-70); Platelet Count 200 K/mm3 (150-450); RBC Distribution Width CV 12.7 % (11.6-14.6); RBC Distribution Width SD 39.6 fl (35.1-43.9); Red Blood Count 4.89 M/mm3 (4.6-6.2); White Blood Count 5.1 K/mm3 (4.4-11.0)
[2024-05-03 18:26] LABS: ALB/GLOB Ratio 1.2 RATIO (0.9-2.4); AST(SGOT) 23 U/L (15-37); Alanine Aminotransfer ALT/SGPT 27 U/L (16-61); Albumin, Serum 3.9 g/dL (3.2-5.0); Alkaline Phosphatase 84 U/L (45-117); Anion Gap 8 (5-15); BUN 17 mg/dL (7-18); BUN/Creat Ratio 20.1 RATIO (10-20); Calcium,Total 9.1 mg/dL (8.5-10.1); Chloride 106 mmol/L (98-107); Cholesterol 204 mg/dL (200); Creatinine, Serum 0.84 mg/dL (0.70-1.30); EST Glomerular Filtration Rate 94 mL/min (>60); Est Glom Filt Rate - Afr Amer 113 mL/min (>60); Globulin 3.3 g/dL (2.2-4.2); Glucose 97 mg/dL (74-106); High Density Lipoprotein 46 mg/dL; PSA,Total - Annual Screen 5.69 ng/mL (0.00-4.00); Potassium 3.6 mmol/L (3.5-5.1); Protein, Total 7.2 g/dL (6.4-8.2); Sodium Level 140 mmol/L (136-145); Triglycerides 127 mg/dL; Very Low Density Lipoprotein 25 mg/dL (5-40)
[2024-05-03 19:27] LABS: Hemoglobin A1c 5.2 % (3.8-5.6)
== END | disposition home or self-care (01) ==
LOC: BFHLAB 15:18
PROVIDERS: PCP Family Medicine; Referring Provider Family Medicine; Visit Provider Family Medicine
DX: D72.819 Decreased white blood cell count, unspecified (principal); R73.01 Impaired fasting glucose; R03.0 Elevated blood-pressure reading, without diagnosis of hypertension; E78.5 Hyperlipidemia, unspecified; Z12.5 Encounter for screening for malignant neoplasm of prostate
CPT/HCPCS: 36415; 80053; 80061; 83036; 84153; 85025; G0103

== ENCOUNTER → 2025-08-15 | Outpatient (CLI) | payer MEDICARE, SELFPAY ==
[2025-08-15 16:05] LABS: AST(SGOT) 24 U/L (<=37); Alanine Aminotransfer ALT/SGPT 18 U/L (<=46); Albumin, Serum 4.4 g/dL (3.4-4.8); Alkaline Phosphatase 81 U/L (40-129); Anion Gap 12 (5-15); BUN 17 mg/dL (4-19); BUN/Creat Ratio 20.0 RATIO (10-20); Calcium,Total 9.5 mg/dL (7.6-11.0); Carbon Dioxide 23.9 mmol/L (21.0-32.0); Chloride 104 mmol/L (98-108); Cholesterol 230 mg/dL (<=200); Globulin 2.9 g/dL (2.2-4.2); Glucose 101 mg/dL (70-99); Low Density Lipoprotein Calc. 165 mg/dL; PSA,Total - Annual Screen 6.09 ng/mL (0.02-4.00); Potassium 4.0 mmol/L (3.3-5.1); Triglycerides 94 mg/dL; Very Low Density Lipoprotein 19 mg/dL (5-40); cholesterol:hdl ratio screen 4.75
--- OUTSIDE RECORDS SUMMARY | 2025-08-15 17:12 | XMS RPT_ITS | CCD ---
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, [address] Absolute Neut 3.1 X10 3/uL Normal 2.0-7.7 [facility] Comment on above: Performed By: #### L 500.4050, L501.9985, L501.9910, L100.0100, L500.4100 #### [facility] [address] [place], [address] Basophils/100 WBC (Bld) 0.4 % Normal 0-1 [facility] Comment on above: Performed By: #### L 500.4050, L501.9985, L501.9910, L100.0100, L500.4100 #### [facility] [address] [place], [address] Eosinophils/100 WBC (Bld) 2.8 % Normal 0-5 [facility] Comment on above: Performed By: #### L 500.4050, L501.9985, L501.9910, L100.0100, L500.4100 #### [facility] [address] [place], [address] Erythrocyte distribution width (RBC) [Ratio] 12.7 % Normal 11.6-14.6 [facility] Comment on above: Performed By: #### L 500.4050, L501.9985, L501.9910, L100.0100, L500.4100 #### [facility] [address] [place], [address] Hematocrit (Bld) [Volume fraction] 42.0 % Normal 40-54 [facility] Comment on above: Performed By: #### L 500.4050, L501.9985, L501.9910, L100.0100, L500.4100 #### [facility] [address] [place], [address] Hemoglobin (Bld) [Mass/Vol] 14.3 g/dL Normal 13.0-16.5 [facility] Comment on above: Performed By: #### L 500.4050, L501.9985, L501.9910, L100.0100, L500.4100 #### [facility] [address] [place], [address] IG% 0.200 Normal 0.0-0.9 [facility] Comment on above: Result Comment: IG% - Immature Granulocytes (promyelocytes, myelocytes and metamyelocytes) > 1% indicates that a LEFT SHIFT is Present. Performed By: #### L 500.4050, L501.9985, L501.9910, L100.0100, L500.4100 #### [facility] [address] [place], [address] Lymphocytes/100 WBC (Bld) 25.7 % Normal 19-41 [facility] Comment on above: Performed By: #### L 500.4050, L501.9985, L501.9910, L100.0100, L500.4100 #### [facility] [address] [place], [address] MCH (RBC) [Entitic mass] 29.2 pg Normal 27.0-32.0 [facility] Comment on above: Performed By: #### L 500.4050, L501.9985, L501.9910, L100.0100, L500.4100 #### [facility] [address] [place], [address] MCHC (RBC) [Mass/Vol] 34.0 g/dL Normal 32-36 [facility] Comment on above: Performed By: #### L 500.4050, L501.9985, L501.9910, L100.0100, L500.4100 #### [facility] [address] [place], [address] MCV (RBC) [Entitic vol] 85.9 fL Normal 80-94 [facility] Comment on above: Performed By: #### L 500.4050, L501.9985, L501.9910, L100.0100, L500.4100 #### [facility] [address] [place], [address] Monocytes/100 WBC (Bld) 10.1 % High 0-10 [facility] Comment on above: Performed By: #### L 500.4050, L501.9985, L501.9910, L100.0100, L500.4100 #### [facility] [address] [place], [address] Neutrophils/100 WBC (Bld) 60.8 % Normal 47-70 [facility] Comment on above: Performed By: #### L 500.4050, L501.9985, L501.9910, L100.0100, L500.4100 #### [facility] [address] [place], [address] Nucleated RBC (Bld) [#/Vol] 0 10*3/uL Normal 0-5 [facility] Comment on above: Performed By: #### L 500.4050, L501.9985, L501.9910, L100.0100, L500.4100 #### [facility] [address] [place], [address] Platelet mean volume (Bld) [Entitic vol] 8.9 fL Normal 6.2-12.0 [facility] Comment on above: Performed By: #### L 500.4050, L501.9985, L501.9910, L100.0100, L500.4100 #### [facility] [address] [place], [address] Platelets (Bld) [#/Vol] 200 10*3/uL Normal 150-450 [facility] Comment on above: Performed By: #### L 500.4050, L501.9985, L501.9910, L100.0100, L500.4100 #### [facility] [address] [place], [address] RBC (Bld) [#/Vol] 4.89 10*6/uL Normal 4.6-6.2 [facility] Comment on above: Performed By: #### L 500.4050, L501.9985, L501.9910, L100.0100, L500.4100 #### [facility] [address] [place], [address] RDW SD 39.6 fl Normal 35.1-43.9 [facility] Comment on above: Performed By: #### L 500.4050, L501.9985, L501.9910, L100.0100, L500.4100 #### [facility] [address] [place], [address] WBC (Bld) [#/Vol] 5.1 10*3/uL Normal 4.4-11.[address] [facility] Comment on above: Performed By: #### L 500.4050, L501.9985, L501.9910, L100.0100, L500.4100 #### [facility] [address] [place], [address] Comprehensive Metabolic Prof [facility] 05-03-2024 Albumin [Mass/Vol] 3.9 g/dL Normal 3.2-5.[address] [facility] Comment on above: Performed By: #### L 500.4050, L501.9985, L501.9910, L100.0100, L500.4100 #### [facility] [address] [place], [address] Albumin/Globulin [Mass ratio] 1.2 {ratio} Normal 0.9-2.4 [facility] Comment on above: Performed By: #### L 500.4050, L501.9985, L501.9910, L100.0100, L500.4100 #### [facility] [address] [place], [address] ALK P 84 U/L Normal 45-117 [facility] Comment on above: Performed By: #### L 500.4050, L501.9985, L501.9910, L100.0100, L500.4100 #### [facility] [address] [place], [address] ALT [Catalytic activity/Vol] 27 U/L Normal 16-61 [facility] Comment on above: Performed By: #### L 500.4050, L501.9985, L501.9910, L100.0100, L500.4100 #### [facility] [address] [place], [address] AST [Catalytic activity/Vol] 23 U/L Normal 15-37 [facility] Comment on above: Performed By: #### L 500.4050, L501.9985, L501.9910, L100.0100, L500.4100 #### [facility] [address] [place], [address] Bilirubin [Mass/Vol] 1.00 mg/dL Normal 0.20-1.00 [facility] Comment on above: Result Comment: For patients on eltrombopag therapy, use of Dimension [place] TBIL is not recommended. Performed By: #### L 500.4050, L501.9985, L501.9910, L100.0100, L500.4100 #### [facility] [address] [place], [address] BUN/CRE 20.1 RATIO High 10-20 [facility] Comment on above: Performed By: #### L 500.4050, L501.9985, L501.9910, L100.0100, L500.4100 #### [facility] [address] [place], [address] CA,Total 9.1 mg/dL Normal 8.5-10.1 [facility] Comment on above: Performed By: #### L 500.4050, L501.9985, L501.9910, L100.0100, L500.4100 #### [facility] [address] [place], [address] Chloride [Moles/Vol] 106 mmol/L Normal 98-107 [facility] Comment on above: Performed By: #### L 500.4050, L501.9985, L501.9910, L100.0100, L500.4100 #### [facility] [address] [place], [address] CO2 [Moles/Vol] 26.0 mmol/L Normal 21.0-32.0 [facility] Comment on above: Performed By: #### L 500.4050, L501.9985, L501.9910, L100.0100, L500.4100 #### [facility] [address] [place], [address] Creatinine [Mass/Vol] 0.84 mg/dL Normal 0.70-1.30 [facility] Comment on above: Result Comment: The validity of the calculated GFR GFRAA in patients over 70 years has not been determined. Clinical correlation is essential. Performed By: #### L 500.4050, L501.9985, L501.9910, L100.0100, L500.4100 #### [facility] [address] [place], [address] EST GFR - AA 113 mL/min Normal >60 [facility] Comment on above: Result Comment: Afri can Palauan GFR Calc Performed By: #### L 500.4050, L501.9985, L501.9910, L100.0100, L500.4100 #### [facility] [address] [place], [address] GAP 8 Normal 5-15 [facility] Comment on above: Performed By: #### L 500.4050, L501.9985, L501.9910, L100.0100, L500.4100 #### [facility] [address] [place], [address] GFR/1.73 sq M.predicted among non-blacks MDRD (S/P/Bld) [Vol rate/Area] 94 mL/min/{1.73_m2} Normal >60 [facility] Comment on above: Result Comment: Non- GFR Calc Performed By: #### L 500.4050, L501.9985, L501.9910, L100.0100, L500.4100 #### [facility] [address] [place], [address] Globulin (S) [Mass/Vol] 3.3 g/dL Normal 2.2-4.2 [facility] Comment on above: Performed By: #### L 500.4050, L501.9985, L501.9910, L100.0100, L500.4100 #### [facility] [address] [place], [address] Glucose [Mass/Vol] 97 mg/dL Normal 74-[address] [facility] Comment on above: Performed By: #### L 500.4050, L501.9985, L501.9910, L100.0100, L500.4100 #### [facility] [address] [place], [address] Potassium [Moles/Vol] 3.6 mmol/L Normal 3.5-5.1 [facility] Comment on above: Performed By: #### L 500.4050, L501.9985, L501.9910, L100.0100, L500.4100 #### [facility] [address] [place], [address] Sodium [Moles/Vol] 140 mmol/L Normal 136-[address] [facility] Comment on above: Performed By: #### L 500.4050, L501.9985, L501.9910, L100.0100, L500.4100 #### [facility] [address] [place], [address] T PROT 7.2 g/dL Normal 6.4-8.2 [facility] Comment on above: Performed By: #### L 500.4050, L501.9985, L501.9910, L100.0100, L500.4100 #### [facility] [address] [place], [address] Urea nitrogen [Mass/Vol] 17 mg/dL Normal 7-18 [facility] Comment on above: Performed By: #### L 500.4050, L501.9985, L501.9910, L100.0100, L500.4100 #### [facility] [address] [place], [address] Hemoglobin A1con 05-03-2024 HbA1c (Bld) [Mass fraction] 5.2 % Normal 3.8-5.6 [facility] Comment on above: Result Comment: Norm al < 5.7 % Prediabetic 5.7 - 6.4 % Diabetic >or= 6.5 % Please note range changes. Performed By: #### L 500.4050, L501.9985, L501.9910, L100.0100, L500.4100 #### [facility] [address] [place], [address] Lipid Profileon 05-03-2024 Cholesterol [Mass/Vol] 204 mg/dL High 200 [facility] Comment on above: Result Comment: <200 mg/dL Desirable 200-240 mg/dL Borderline >240 mg/dL High Risk Performed By: #### L 500.4050, L501.9985, L501.9910, L100.0100, L500.4100 #### [facility] [address] [place], [address] Cholesterol in HDL [Mass/Vol] 46 mg/dL Normal [facility] Comment on above: Result Comment: The drugs N-Acetylcysteine and Metamizole may falsely depress this assay. Reference Range HDL <40 mg/dL Low HDL Cholesterol HDL >or= 60 mg/dL High HDL Cholesterol Performed By: #### L 500.4050, L501.9985, L501.9910, L100.0100, L500.4100 #### [facility] [address] [place], [address] Cholesterol in LDL [Mass/Vol] 133 mg/dL High 0-130 [facility] Comment on above: Performed By: #### L 500.4050, L501.9985, L501.9910, L100.0100, L500.4100 #### [facility] [address] [place], [address] Cholesterol in VLDL [Mass/Vol] 25 mg/dL Normal 5-40 [facility] Comment on above: Performed By: #### L 500.4050, L501.9985, L501.9910, L100.0100, L500.4100 #### [facility] [address] [place], [address] Triglyceride [Mass/Vol] 127 mg/dL Normal [facility] Comment on above: Result Comment: The drugs N-Acetylcysteine and Metamizole may falsely depress this assay. Serum Triglycerides Reference Interval Normal <150 mg/dL Borderline high 150 - 199 mg/dL High 200 - 499 mg/dL Very High > or = 500 mg/dL Performed By: #### L 500.4050, L501.9985, L501.9910, L100.0100, L500.4100 #### [facility] [address] [place], [address] PSA,Total - Annual Screenon 05-03-2024 PSA,TOT SCREEN 5.69 ng/mL High 0.00-4.00 [facility] Comment on above: Result Comment: This test was performed using the TPSA assay method for the [employer] chemistry system. Values obtained with different assay methods cannot be used interchangably. When changing PSA assays in the course of monitoring a patient, additional sequential testing should be carried out to confirm baseline values. Performed By: #### L 500.4050, L501.9985, L501.9910, L100.0100, L500.4100 #### [facility] [address] [place], [address] Encounters Encounter Date Encounter Type Care Provider Facility Start: 05-03-2024 End: 05-03-2024 [facility] Facility:[facility] Payers Date Payer Category Payer Medicare [id number] 2024 Self-pay Unknown [id number] Summary Purpose Family History No Family History Records Found Advance Directives No Advanced Directives Records Found Additional Source Comments (unrecognized sect ion and content) No Status Records Found INFORMATION SOURCE (unrecogn ized section and content) DATE CREATED AUTHOR 05/13/2024 [facility] FOR RECORDS PERTAINING TO PATIENTS WHO ARE OR HAVE BEEN ENROLLED IN A CHEMICAL DEPENDENCY/SUBSTANCEABUSE PROGRAM, SOME INFORMATION MAY BE OMITTED. This clinical summary was aggregated from multiple sources. Caution should be exercised in using it in the provision of clinical care. This summary normalizes information from multiple sources, and as a consequence, information in this document may materially change the coding, format and clinical context of patient data. In addition, data may be omitted in some cases. CLINICAL DECISIONS SHOULD BE BASED ON THE PRIMARY CLINICAL RECORDS. [facility]. provides no warranty or guarantee of the accuracy or completeness of information in this document.
== END | disposition home or self-care (01) ==
LOC: BFHLAB 13:17
PROVIDERS: PCP Family Medicine; Visit Provider Family Medicine
DX: I10 Essential (primary) hypertension (principal); Z12.5 Encounter for screening for malignant neoplasm of prostate
CPT/HCPCS: 36415; 80053; 80061; 84153; G0103